=== PATIENT | female | born 1990 | race Caucasian/White ===

== ENCOUNTER 2017-07-13 16:47 | Emergency (ER) | payer OTHER ==
[2017-07-13 21:39] LABS: URINE PH (Dip) POC 5.5 (5.0-8.5)
[2017-07-13 21:39] LABS: URINE BLOOD (Dip) POC Negative (NEGATIVE); URINE GLUCOSE (Dip) POC Negative (NEGATIVE); URINE KETONES (Dip) POC Negative (NEGATIVE); URINE LEUKOCYTE EST (Dip) POC Negative (NEGATIVE); URINE NITRITE (Dip) POC Negative (NEGATIVE); URINE TOTAL PROTEIN POC Negative (NEGATIVE)
[2017-07-13] MEDS: METOCLOPRAMIDE 10 MG INJ IV (21:48)
[2017-07-13] MEDS: SOD CHLORIDE 0.9% 1,000 ML IV (21:48)
[2017-07-13] MEDS: KETOROLAC 30 MG INJ IV (21:48)
== END 2017-07-13 23:14 | disposition home or self-care (01) ==
LOC: FTE 16:47
DX: R51 Headache (principal); R11.0 Nausea; R06.02 Shortness of breath
CPT/HCPCS: 71045; 81003; 96374; 96375; 99284-25

== ENCOUNTER 2017-09-23 19:29 | Emergency (ER) | payer OTHER | END 2017-09-23 20:00 | disposition home or self-care (01) | LOC: E/R 20:00 | DX: R21 Rash and other nonspecific skin eruption (principal) | CPT/HCPCS: 99283; Z7502 ==

== ENCOUNTER 2018-08-27 22:32 | Emergency (ER) | payer OTHER ==
[2018-08-27] MEDS: DEXAMETHASONE 4 MG TAB PO (23:13)
[2018-08-27] MEDS: ACETAMINOPHEN 325 MG TAB PO (23:14)
== END 2018-08-28 00:58 | disposition home or self-care (01) ==
LOC: FTE 08-28 00:58
DX: J06.9 Acute upper respiratory infection, unspecified (principal)
CPT/HCPCS: 99283; Z7502

== ENCOUNTER 2019-01-30 03:52 | Emergency (ER) | payer OTHER ==
[2019-01-30] MEDS: IPRATROPIUM (NEB) 0.5 MG/2.5 ML AMP NEB (04:23)
[2019-01-30] MEDS: ALBUTEROL 0.083% (NEB) 2.5 MG/3 ML AMP NEB (04:24)
== END 2019-01-30 05:30 | disposition home or self-care (01) ==
LOC: FTE 03:52
DX: J40 Bronchitis, not specified as acute or chronic (principal)
CPT/HCPCS: 94664; 99283-25

== ENCOUNTER 2019-02-19 23:45 | Emergency (ER) | payer OTHER ==
[2019-02-20] MEDS: HYDROCODONE/APAP (5/325) TAB PO (01:28)
[2019-02-20] MEDS: KETOROLAC 30 MG INJ IM (01:29)
[2019-02-20 01:34] LABS: ADD MAN DIFF? NO
[2019-02-20 01:35] LABS: BASOPHILS % 0.4 % (0.0-2.0); EOSINOPHILS # 0.2 10^3/ul (0.0-0.5); EOSINOPHILS % 2.2 % (0.0-7.0); HEMATOCRIT 40.6 % (37.0-47.0); HEMOGLOBIN 12.6 g/dl (12.0-16.0); LYMPHOCYTES # 2.8 10^3/ul (0.8-2.9); LYMPHOCYTES % 25.6 % (15.0-51.0); MEAN CORPUSCULAR HEMOGLOBIN 24.8 pg (29.0-33.0); MEAN CORPUSCULAR VOLUME 79.8 fl (82.0-101.0); MONOCYTES % 9.4 % (0.0-11.0); NEUTROPHIL # 6.8 10^3/ul (1.6-7.5); PLATELET COUNT 348 10^3/UL (140-415); RED BLOOD COUNT 5.09 10^6/ul (4.20-5.40); RED CELL DISTRIBUTION WIDTH 15.9 % (11.5-14.5)
[2019-02-20 01:35] LABS: WHITE BLOOD COUNT 10.9 10^3/ul (4.8-10.8)
[2019-02-20 01:44] LABS: ADD UMIC YES; UR ASCORBIC ACID NEGATIVE (NEGATIVE); UR BILIRUBIN (Dip) NEGATIVE (NEGATIVE); UR BLOOD (Dip) NEGATIVE (NEGATIVE); UR CLARITY SLIGHTLY CLOUDY (CLEAR); UR COLOR YELLOW (YELLOW); UR GLUCOSE (Dip) NEGATIVE (NEGATIVE); UR KETONES (Dip) NEGATIVE (NEGATIVE); UR LEUKOCYTE ESTERASE (Dip) TRACE Leu/ul (NEGATIVE); UR MUCUS FEW /HPF (NONE SEEN); UR NITRITE (Dip) NEGATIVE (NEGATIVE); UR RBC 1 /HPF (0-5); UR SQUAMOUS EPITHELIAL CELL MODERATE /HPF (FEW); UR TOTAL PROTEIN (Dip) NEGATIVE (NEGATIVE); UR UROBILINOGEN (Dip) NEGATIVE (NEGATIVE); UR WBC 2 /HPF (0-5)
[2019-02-20 01:52] LABS: ANION GAP 8 (5-13); BLOOD UREA NITROGEN 14 mg/dl (7-20); CALCIUM 9.5 mg/dl (8.4-10.2); CARBON DIOXIDE 25 mmol/L (21-31); CHLORIDE 105 mmol/L (97-110); CREATININE 0.61 mg/dl (0.44-1.00); Estimated GFR > 60 mL/min (>60); GLUCOSE 93 mg/dl (70-220); POTASSIUM 4.1 mmol/L (3.5-5.1); SODIUM 138 mmol/L (135-144)
== END 2019-02-20 02:38 | disposition home or self-care (01) ==
LOC: FTE 23:45
DX: N12 Tubulo-interstitial nephritis, not specified as acute or chronic (principal)
CPT/HCPCS: 76775; 80048; 81001; 81025; 85025; 96372; 99285-25